=== PATIENT | female | born 1980 | race Caucasian/White ===

== ENCOUNTER 2020-07-29 19:52 | Emergency (ER) | payer MEDICAID, OTHER ==
[~2020-07-29] VITALS: Ht 162.6 cm; Wt 81.8 kg
[~2020-07-29 19:52] MED LIST: ACET-784 PO; CITA-144 PO; OMEP20CA4 PO
[2020-07-29] MEDS ORDERED: LISI-660 PO (20:16)
[2020-07-29] MEDS ORDERED: SIMV-261 PO (20:16)
[2020-07-29] MEDS ORDERED: METF-960 PO (20:16)
[2020-07-29] MEDS ORDERED: SITA100 PO (20:16)
[2020-07-29] MEDS ORDERED: ACET-66 PO (20:20)
[2020-07-29] MEDS ORDERED: OMEP20 PO (20:20)
[2020-07-29] MEDS ORDERED: ACETAMINOPHEN 325 MG TABLET PO ONE (21:00)
[2020-07-29 21:45] VITALS: BP 117/72
[2020-07-29] MEDS ORDERED: KETOROLAC TROMETHAMINE 10 MG TABLET PO ONE (22:00)
[2020-07-30 07:49] LABS: GLUCOSE,POINT OF CARE 199 MG/DL (70-110)
== END 2020-07-29 22:40 | disposition left against medical advice (07) ==
LOC: EMS 19:54
DX: M54.5 Low back pain (principal); G89.29 Other chronic pain; F32.9 Major depressive disorder, single episode, unspecified; Z88.1 Allergy status to other antibiotic agents; Z88.8 Allergy status to other drugs, medicaments and biological substances; Z79.899 Other long term (current) drug therapy; Z79.84 Long term (current) use of oral hypoglycemic drugs